=== PATIENT | female | born 1950 | race American Indian/Alaskan Native ===

== ENCOUNTER 2020-12-23 13:10 | Outpatient (CLI) | payer MEDICARE ==
--- NOTE | 2020-12-23 14:45 | XRay Report ---
XR hips BILAT 2V w/pelvis (3 views). INDICATION / CLINICAL INFORMATION: BILATERAL HIP PAIN. COMPARISON: None available. FINDINGS: No acute fracture. No dislocation. Mild to moderate bilateral hip osteoarthritis. Degenerative change s are also seen within the SI joints. No SI joint or pubic symphyseal diastases. Lower lumbar spondyl osis is partially imaged. No focal soft tissue abnormality. IMPRESSION: No acute abnormality. Chronic, degenerative changes as above. Signer Name: Wilbert Ryan MD Signed: 12/23/2020 2:41 PM Workstation Name: [id number]
== END 2020-12-23 13:11 | disposition home or self-care (01) ==
LOC: XRAY 13:10
PROVIDERS: ATTEND Orthopaedic Surgery
DX: M16.0 Bilateral primary osteoarthritis of hip (principal); M47.898 Other spondylosis, sacral and sacrococcygeal region; M47.816 Spondylosis without myelopathy or radiculopathy, lumbar region
CPT/HCPCS: 73521

== ENCOUNTER 2021-02-05 07:31 | Outpatient (CLI) | payer MEDICARE ==
--- NOTE | 2021-02-05 08:46 | XRay Report ---
LUMBOSACRAL SPINE 3 VIEWS INDICATION: Back pain, hip pain. COMPARISON: None. IMPRESSION: There is 5 mm anterolisthesis of L4 with respect to L5 which appears to be secondary to degenerative facet arthropathy. The remaining lumbar vertebra are normal in alignment. Osteopenia is evident. 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 L4-5 and L5-S1 is the most affected levels. There are mild symmetric degenerative changes at the SI joints. No acute o sseous or soft tissue abnormality. Signer Name: Fernandez Jamil Jr, MD Signed: 02/05/2021 8:41 AM Workstation Name: [id number]
== END 2021-02-05 07:32 | disposition home or self-care (01) ==
LOC: XRAY 07:31
PROVIDERS: ATTEND Orthopaedic Surgery
DX: M47.817 Spondylosis without myelopathy or radiculopathy, lumbosacral region (principal); M85.88 Other specified disorders of bone density and structure, other site; M47.898 Other spondylosis, sacral and sacrococcygeal region; M25.78 Osteophyte, vertebrae
CPT/HCPCS: 72100